=== PATIENT | female | born 1965 | race Caucasian/White ===

== ENCOUNTER 2018-12-24 15:40 | Observation (INO) ==
--- NOTE | 2018-12-24 16:09 | XRay Report ---
SINGLE VIEW CHEST CLINICAL HISTORY: Atypical chest pain. FINDINGS: An AP, portable, upright chest radiograph is obtained No prior studies are available for co mparison at the time of dictation. The examination is degraded by portable technique and patient rota tion. The cardiomediastinal silhouette is unremarkable. The lungs and pleural spaces are clear. No pn eumothorax is seen. The bony thorax is grossly intact. IMPRESSION: No active disease in the chest. Electronically signed by: Arun Marlow M.D. 12/24/2018 4:08 PM
[2018-12-24] MEDS ORDERED: SODIUM CHLORIDE 0.9% 1000ML 1,000 ML IV ONE (16:10)
[2018-12-24 16:12] LABS: Basophils # (auto) 0.02 K/uL (0-0.2); Basophils % (auto) 0.3 %; Eosinophils # (auto) 0.18 K/uL (0-0.5); Eosinophils % (auto) 2.5 %; Hematocrit (blood only) 40.4 % (37-47); Hemoglobin 13.4 g/dL (12.0-16.0); Immature Granulocytes # (auto) 0.02 K/uL (0.00-0.02); Immature Granulocytes % (auto) 0.3 %; Lymphocytes # (auto) 1.44 K/uL (1.2-3.4); Lymphocytes % (auto) 20.2 %; Mean Corpuscular Hgb Conc 33.2 g/dL (32-36); Mean Corpuscular Volume 95.5 fL (80-100); Mean Platelet Volume 9.9 fL (7.4-10.4); Monocytes # (auto) 0.62 K/uL (0.11-0.59); Monocytes % (auto) 8.7 %; Neutrophils # (auto) 4.85 K/uL (1.4-6.5); Platelet Count 269 K/uL (130-400); RDW Coefficient of Variation 12.9 % (11.5-14.5); RDW Standard Deviation 45.1 fL (36.4-46.3); Red Blood Count 4.23 M/uL (4.2-5.4); White Blood Count 7.13 K/uL (4.8-10.8)
[2018-12-24 16:30] LABS: Alanine Aminotransferase 20 U/L (12-78); Albumin Level 3.9 gm/dl (3.4-5.0); Aspartate Aminotransferase 15 U/L (15-37); BUN Creatinine Ratio 12.9 (10-20); Bilirubin Direct < 0.1 mg/dl (0-0.2); Blood Urea Nitrogen 9 mg/dl (7-18); Calcium 9.8 mg/dl (8.5-10.1); Carbon Dioxide 30 mmol/L (21-32); Chloride 105 mmol/L (98-107); Creatinine Clr Calc Pharmacy 117.9 ml/min; Est GFR (African American) 114.9; Est GFR (Non-African American) 99.2; Glucose 79 mg/dl (70-99); Magnesium 2.1 mg/dl (1.8-2.4); Potassium 3.5 mmol/L (3.5-5.1); Sodium 140 mmol/L (136-145)
--- NOTE | 2018-12-24 16:32 | Emergency Department Note ---
Entered by Kate Campos acting as a scribe for History of Present Illness General Chief complaint: Chest Pain Stated complaint: TIGHTNESS IN ARMS, NECK, CHEST,AND JAW;TINGLING Time Seen by Provider: 12/24/18 15:47 Source: patient History of Present Illness Onset (ago): hour(s) (15) Location: chest Pain Consistency: + other (waxing and waning) Maximum Pain Intensity: 2 Current Pain Intensity: 1 Quality: + other (tightness) Relieved By: + rest Exacerbated By: + movement Associated symptoms: + other (positive increased burping; positive "fuzzy h eaded"; negative congestion; negative diarrhea); no cough, no fever/chills, no nausea/vomiting and no shortness of breath The patient is a 53 year old female who presents to the Emergency Room with complaints of waxing and waning chest tightness that began this morning at 0100, about 15 hours prior to arrival. The patient states that this woke her up from sleep. The patient states that her symptoms are exacerbated with movement and relieved with rest. She states that during this time she has had increased burping and has felt "fuzzy headed". The patient rates her current pain at a 1/10. The patient denies recent fevers, chills, nausea, vomiting, cough, congestion, and diarrhea. The patient denies any recent shortness of breath. She states that she is a former smoker and occasionally drinks alcohol, but denies any drug use. The patient states that her father had a heart attack in his early 50s. The patient states that she has a history of anxiety and panic attacks. 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 The patient denies a history of reflux. She denies any recent long trips. Home Medications Home Medications Medication Instructions Recorded Confirmed Type levonorgestrel [Mirena] 20 mcg INTRAUTERINE 12/24/18 History Allergies Allergy/AdvReac Type Severity Reaction Status Date / Time No Known Allergies Allergy Unverified 12/24/18 16:52 Past Med/Surg History Medical History IUD (intrauterine device) in place (Chronic) 2017 Anxiety (Chronic) Panic attacks Surgical History History of (Chronic) Family History Father Myocardial infarction Mother Cancer Squamous cell carcinoma - Oral cancer Sister Cancer Lung cancer Social History Preferred Language: Nicaraguan Communication Ability: Effective 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 and A total of 10 systems reviewed and were otherwise negative Physical Exam Vital Signs Vital Signs - 24 hr 12/24/18 15:42 12/24/18 16:30 12/24/18 16:31 Temperature 36.6 C Temperature Source Oral Sepsis Recent Fever Within 48 Hours No Sepsis New/Unexplained Change in Mental Status No Sepsis Action Taken by Nursing No Action Required Pulse Rate 93 H 89 Pulse Rate from SpO2 Sensor Respiratory Rate 18 20 Respiratory Effort / Characteristics Non-Labored Respiratory Depth Normal Respiratory Pattern Regular Blood Pressure 147/84 H 145/84 H Blood Pressure Mean 105 104 Blood Pressure Position Sitting Pulse Oximetry 99 99 99 Oxygen Delivery Method Room Air Room Air Room Air 12/24/18 17:30 Temperature Temperature Source Sepsis Recent Fever Within 48 Hours Sepsis New/Unexplained Change in Mental Status Sepsis Action Taken by Nursing Pulse Rate 79 Pulse Rate from SpO2 Sensor 88 Respiratory Rate 18 Respiratory Effort / Characteristics Respiratory Depth Respiratory Pattern Blood Pressure 139/75 Blood Pressure Mean 96 Blood Pressure Position Pulse Oximetry 98 Oxygen Delivery Method Room Air GENERAL: Awake, alert, anxious-appearing, in no distress HENT: Normocephalic, atraumatic. Oropharynx with dry mucous membranes and otherwise unremarkable. EYES: Normal conjunctiva. Sclera non-icteric. NECK: Supple. No nuchal rigidity. FROM. No JVD. RESPIRATORY: CTAB. CARDIAC: Regular rate, normal rhythm. Extremities warm and well perfused. Pulses equal. ABDOMEN: Soft, non-distended. No tenderness to palpation. No rebound or guarding. No masses. RECTAL: Deferred. MUSCULOSKELETAL: Chest examination reveals no tenderness. The back is symmetrica l on inspection without obvious abnormality. There is no CVA tenderness to palpation. No joint edema. LOWER EXTREMITIES: Calves are equal size bilaterally and non-tender. No edema. No discoloration. NEURO: Normal sensorium. No sensory or motor deficits noted. SKIN: No rash or jaundice noted. Course 1604: Past medical records reviewed. The patient was evaluated in room B9. A complete history and physical exam was performed. 1703: Upon reevaluation, the patient states that she currently feels dizzy. 1709: I discussed the case with Pamela Ramos PA-C who accepts the patient for further evaluation. Consultations Consultation #1: I discussed the case with Pamela Ramos PA-C who accepts the patient for further evaluation. Time: 17:09 Administered Medications Discontinued Medications Aspirin (Aspirin) 324 mg PO NOW STA Stop: 12/24/18 17:07 Last Admin: 12/24/18 17:21 Dose: 324 mg Documented by: [id number] Sodium Chloride (Nss 1000ml) 1,000 mls @ 999 mls/hr IV .Q1H1M ONE Stop: 12/24/18 17:10 Last Infusion: 12/24/18 17:12 Dose: 0 mls/hr Documented by: [id number] Admin: 12/24/18 16:11 Dose: 999 mls/hr Documented by: [id number] Medical Decision Making Differential Diagnosis Differential diagnosis: Etiologies such as cardiac ischemia, aortic dissection, pulmonary embolism, pneumonia, pneumothorax, musculoskeletal, infections, pericarditis, myocarditis, esophageal rupture, gastrointestinal, as well as others were entertained. Medical Records Attestation: I reviewed the patient's medical records. Home Medications Current Medication List: was personally reviewed by me Laboratory Data Attestation: I reviewed the patient's lab results. Result diagrams: 12/24/18 15:57 12/24/18 15:57 Lab Results 12/24/18 12/24/18 Range/Units 15:57 15:57 WBC 7.13 (4.8-10.8) K/uL RBC 4.23 (4.2-5.4) M/uL Hgb 13.4 (12.0-16.0) g/dL Hct 40.4 (37-47) % MCV 95.5 (80-100) fL MCH 31.7 (25-34) pg MCHC 33.2 (32-36) g/dL RDW Std Deviation 45.1 (36.4-46.3) fL RDW Coeff of Audie 12.9 (11.5-14.5) % Plt Count 269 (130-400) K/uL MPV 9.9 (7.4-10.4) fL Immature Gran % (Auto) 0.3 % Neut % (Auto) 68.0 % Lymph % (Auto) 20.2 % [place] % (Auto) 8.7 % Eos % (Auto) 2.5 % Baso % (Auto) 0.3 % Immature Gran # (Auto) 0.02 (0.00-0.02) K/uL Neut # (Auto) 4.85 (1.4-6.5) K/uL Lymph # (Auto) 1.44 (1.2-3.4) K/uL [place] # (Auto) 0.62 H (0.11-0.59) K/uL Eos # (Auto) 0.18 (0-0.5) K/uL Baso # (Auto) 0.02 (0-0.2) K/uL Sodium 140 (136-145) mmol/L Potassium 3.5 (3.5-5.1) mmol/L Chloride 105 (98-107) mmol/L Carbon Dioxide 30 (21-32) mmol/L Anion Gap 6.0 (3-11) BUN 9 (7-18) mg/dl Creatinine 0.68 (0.6-1.2) mg/dl Est Cr Clr Drug Dosing 117.9 ml/min Est GFR ( Amer) 114.9 Est GFR (Non-Af Amer) 99.2 BUN/Creatinine Ratio 12.9 (10-20) Glucose 79 (70-99) mg/dl Calcium 9.8 (8.5-10.1) mg/dl Phosphorus 3.0 (2.5-4.9) mg/dl Magnesium 2.1 (1.8-2.4) mg/dl Total Bilirubin 0.2 (0.2-1) mg/dl Direct Bilirubin < 0.1 (0-0.2) mg/dl AST 15 (15-37) U/L ALT 20 (12-78) U/L Alkaline Phosphatase 72 (45-117) U/L Troponin I < 0.015 (0-0.045) ng/ml Total Protein 7.5 (6.4-8.2) gm/dl Albumin 3.9 (3.4-5.0) gm/dl Globulin 3.6 (2.5-4.0) gm/dl Albumin/Globulin Ratio 1.1 (0.9-2) Lipase 194 (73-393) U/L TSH 1.240 (0.300-4.500) uIu/ml Imaging Data Radiologist's Impression: Radiology results as stated below per my review and the radiologist's interpretation: SINGLE VIEW CHEST CLINICAL HISTORY: Atypical chest pain. FINDINGS: An AP, portable, upright chest radiograph is obtained No prior studies are available for comparison at the time of dictation. The examination is degraded by portable technique and patient rotation. The cardiomediastinal silhouette is unremarkable. The lungs and pleural spaces are clear. No pneumothorax is seen. The bony thorax is grossly intact. IMPRESSION: No active disease in the chest. Electronically signed by: Arun Marlow M.D. 12/24/2018 4:08 PM ECG Data Attestation: I personally reviewed and interpreted this ECG as follows: Indication: chest pain Rate (beats per minute): 81 Rhythm: normal sinus Findings: + other (normal axis; no overt acute ischemia; nonspecific ST abnormality) Blood Pressure Blood Pressure Findings: Elevated blood pressure Blood Pressure Disposition: further management by hospitalist YADI Merino The patient is a pleasant 53-year-old woman Priestly healthy with a past medical history of anxiety and panic attacks who presents to emergency department with constant chest pain since 1 AM last night which does wax and wane in severity and she feels is worse when she is however at this time she notes only marginal discomfort per hpi. Patient reports she sees a doctor regularly and denies any medical problems otherwise. She does report her father had his first heart attack in his 50s. On arrival patient is no acute distress, afebrile stable vi kg signs. She appears clinically dry. EKG with nonspecific ST abnormality but no overt acute ischemia. Chest x-ray negative. WBC, H/H, platelets wnl. Chemistry without acidosis. LFTs and electrolytes unremarkable. Initial troponin negative in the setting of constant though waxing waning symptoms since 1 AM last night, which is reassuring. However, patient's new WYLIE raises suspicion for possible cardiac etiology. Heart score is 4, moderate risk, reasonable to admit for further cardiac rule out. Case was discussed with Tatiana Rosado, [facility], who evaluate the patient for admission. Impression & Plan Atypical chest pain Discharge Plan Visit Data *Final* Discharge Date/Time: 12/24/18 18:35 Chief Complaint: Chest Pain Stated Complaint: TIGHTNESS IN ARMS, NECK, CHEST,AND JAW;TINGLING ED Provider: Roberto Denny Discharge Problem: Atypical chest pain Patient Disposition: Admitted As Inpatient Discharge Instructions Interventions: ED Discharge Assessment Last Done: 12/24/18 18:35 The scribe's documentation has been prepared under my direction and personally reviewed by me in its entirety. I confirm that the note above accurately reflects all work, treatment, procedures, and medical decision making performed by me.
[2018-12-24 16:39] LABS: Albumin Globulin Ratio 1.1 (0.9-2); Alkaline Phosphatase 72 U/L (45-117); Bilirubin,Total 0.2 mg/dl (0.2-1); Globulin 3.6 gm/dl (2.5-4.0); Total Protein 7.5 gm/dl (6.4-8.2); Troponin I < 0.015 ng/ml (0-0.045)
[2018-12-24] MEDS ORDERED: ASPIRIN CHEW 324 MG PO STA (17:06)
--- NOTE | 2018-12-24 17:46 | History & Physical Report ---
Date of Service December 24, 2018 Assessment & Plan (1) Chest pain: Pt presented with c/o anterior upper chest tightness intermittent with some SOB, dizziness for past 16 hours. No CP or other symptoms while in ER In ER vitals stable. Negative troponin. EKG sinus rhythm with nonspecific ST changes, no acute ST elevations CHEST PAIN R/O ACS. Risk factors: FH CAD DDX: anxiety, GERD, musculoskeletal -Monitor Vitals -Repeat EKG in am -Will trend troponin -lipid panel in am -ASA -Nitro prn CP and repeat EKG for CP -If normal troponins plan for exercise stress in am DVT Prophylaxis -Low risk, Ambulate Follows with Dr Nguyen for routine care Pt was seen and care coordinated with Dr Littlejohn. See addendum History of Present Illness Chief Complaint: chest tightness Primary Care Provider: Derian Nguyen MD Pt is 53 y/o F with PMH anxiety presented to ER with complaint of chest pain tightness. Patient reports approximately 1 AM this morning started with chest tightness described as upper anterior chest some associated dizziness, mild SOB, and feels like her heart rate might be "on the high side". Denies any associated nausea or vomiting. Symptoms have been intermittent. Denies history of hypertension hyperlipidemia or known CAD. Father with history of first LA in his early 50s and fatal LA in his early 70's. Patient reports history of panic attack in the past when she would feel SOB, CP. Denies any increased stressors recently. Denies any hx CP/chest tightness or SOB with exertion in past. During entire ED course patient without any chest tightness, dizziness, shortness of breath. Denies fever/chills, diaphoresis, N/V/D/C, [place], syncope, vision changes, neck pain, orthopnea, palpitations, cough, sore throat, choking, otalgia, rhinorrhea, abdominal pain, paresthesias, weakness, extremity weakness, extremity edema, rashes, urinary symptoms. Denies recent injury/trauma, recent travel. Allergies Allergy/AdvReac Type Severity Reaction Status Date / Time No Known Allergies Allergy Unverified 12/24/18 16:52 Home Medications Home Medications Medication Instructions Recorded Confirmed Type levonorgestrel [Mirena] 20 mcg INTRAUTERINE 12/24/18 History Past Med/Surg History Medical History IUD (intrauterine device) in place (Chronic) 2017 Anxiety (Chronic) Panic attacks Surgical History History of (Chronic) Family History Father Myocardial infarction Mother Cancer Squamous cell carcinoma - Oral cancer Sister Cancer Lung cancer Social History Preferred Language: Hungarian Feels Safe at Home: Yes Smoking Status: Former smoker Hx Alcohol Use: No Hx Substance Use: No Review of Systems Review of Systems: All systems reviewed & are unremarkable except as noted in HPI & below Physical Exam Physical Exam: General: no distress, WDWN Head: normocephalic, atraumatic Eyes: PERRL, EOM's intact, conjunctiva non-injected, anicteric ENT: normal inspection external ears, nose, mucous membranes moist Neck: supple, trachea midline Lungs: clear, no respiratory distress, no wheezing/rhonchi/rales CV: RRR, no murmur, no pretibial edema Chest: no rashes, no chest wall tenderness to palpation Abd: normal BS, soft, non-tender Ext: no cyanosis, no calf tenderness Neuro: A&O x 3, no focal deficits noted, normal affect Skin: warm, dry Results & Data Vital Signs (Past 12 Hours) Vital Signs Temp Pulse Resp BP Pulse Ox 12/24/18 17:30 79 18 139/75 98 12/24/18 16:31 89 20 145/84 H 99 12/24/18 16:30 99 12/24/18 15:42 36.6 C 93 H 18 147/84 H 99 Laboratory Results Short CBC 12/24/18 Range/Units 15:57 WBC 7.13 (4.8-10.8) K/uL Hgb 13.4 (12.0-16.0) g/dL Hct 40.4 (37-47) % Plt Count 269 (130-400) K/uL BMP 12/24/18 15:57 Sodium 140 Potassium 3.5 Chloride 105 Carbon Dioxide 30 BUN 9 Creatinine 0.68 Glucose 79 Calcium 9.8 Cardiac Enzymes 12/24/18 Range/Units 15:57 Troponin I < 0.015 (0-0.045) ng/ml Liver Function 12/24/18 Range/Units 15:57 Total Bilirubin 0.2 (0.2-1) mg/dl Direct Bilirubin < 0.1 (0-0.2) mg/dl AST 15 (15-37) U/L ALT 20 (12-78) U/L Alkaline Phosphatase 72 (45-117) U/L Albumin 3.9 (3.4-5.0) gm/dl Diagnostic Findings CXR: IMPRESSION: No active disease in the chest. ECG Rate (beats per minute): 81 Rhythm: normal sinus Findings: + nonspecific-ST abn Supervising Physician Co-Signing Physician Notes I saw this patient with the physician medical office assistant instructor, I participated in the history, physical, review of systems, and physical exam. I reviewed the medications with the patient and the physician medical office assistant instructor and helped reconcile the medications. I helped take a detailed family and social history as well. I formulated the assessment and plan personally with the physician medical office assistant instructor and went over it with the patient. ROS-No Headache, No Visual Changes, No Nausea, No Vomiting, No Fever, No Chills, No Neck Pain or Stiffness, + Chest Pressure, like a bear hug, +Radiation to arms, No Palpitations, No SOB, No WYLIE, No Cough, No Sputum, No Wheezing, No Abdominal Pain, No Diarrhea, No Hematemesis, No Hemoptysis, No Unexpected Weight Loss, No Flank pain, No Melena, No Hematochezia, No Frequency, No Urgency, No Burning, No Hematuria, No Rashes, No Diaphoresis. Appetite is Normal Physical Exam Gen-AAO x 3, NAD, Afebrile Head-NCAT, EOMI, PERRLA, Anicteric Sclera, No Posterior Pharyngeal Erythema Neck-Supple, No JVD, No Thyromegaly, No Masses, No LAD, No Bruits Lungs-Clear to Auscultation Bilaterally, No Rales, No Rhonchi, No Wheezing, No Crepitus Chest-No S4, +S1, +S2, No S3, No Murmurs, No Rubs, No Gallops, No Ectopy Abdomen-Soft, Bowel Sounds Present, Non Tender, Non Distended, No Hepatomegaly, No Splenomegaly, No Palpable Masses, No Rebound, No Rigidity, No Guarding Musculoskeletal-Full Range of Motion Bilaterally, No CVAT Extremities-No Cyanosis, No Clubbing, No Edema Nuero-Cranial Nerves II-XII grossly intact, Motor WNL, DTRs WNL, Strength WNL, Non Focal Psych-Normal Mood
[2018-12-24] MEDS ORDERED: NITROGLYCERIN SL 0.4 MG/TAB TAB SL PRN (18:45)
[2018-12-24] MEDS ORDERED: ACETAMINOPHEN 325 MG TAB PO PRN (18:45)
[2018-12-25 04:21] LABS: Hematocrit (blood only) 36.4 % (37-47); Mean Corpuscular Volume 94.5 fL (80-100); Mean Platelet Volume 9.7 fL (7.4-10.4); Platelet Count 223 K/uL (130-400); RDW Coefficient of Variation 12.9 % (11.5-14.5); RDW Standard Deviation 44.7 fL (36.4-46.3); Red Blood Count 3.85 M/uL (4.2-5.4); White Blood Count 6.56 K/uL (4.8-10.8)
[2018-12-25 04:37] LABS: BUN Creatinine Ratio 18.6 (10-20); Blood Urea Nitrogen 10 mg/dl (7-18); Carbon Dioxide 26 mmol/L (21-32); Chloride 110 mmol/L (98-107); Creatinine Clr Calc Pharmacy 143.3 ml/min; Est GFR (African American) 122.5; Est GFR (Non-African American) 105.7; Glucose 92 mg/dl (70-99); Potassium 3.7 mmol/L (3.5-5.1); Sodium 142 mmol/L (136-145)
[2018-12-25 04:42] LABS: Chol HDL Ratio 3; Cholesterol 195 mg/dl (0-200); HDL Cholesterol 58 mg/dl; LDL Cholesterol Calculated 122 mg/dl; Triglycerides 77 mg/dl (0-150); Troponin I < 0.015 ng/ml (0-0.045); VLDL Cholesterol 15 mg/dl
[2018-12-25] MEDS ORDERED: ASPIRIN 81 MG ECTAB PO SCH (09:00)
[2018-12-25] MEDS ORDERED: PERFLUTREN LIPID MICROSPHERE (DEFINITY) IV ONE (10:19)
--- NOTE | 2018-12-25 13:43 | Hospitalist Progress Note ---
Date of Service December 25, 2018 Assessment & Plan (1) Chest pain: Pt presented with c/o anterior upper chest tightness intermittent with some SOB, dizziness for past 16 hours. No CP or other symptoms while in ER In ER vitals stable. Negative troponin. EKG sinus rhythm with nonspecific ST changes, no acute ST elevations CHEST PAIN R/O ACS. Risk factors: FH CAD DDX: anxiety, GERD, musculoskeletal Serial cardiac enzymes and EKG remained unremarkable No more chest pain since admission Status post negative stress echo Will discharge home DVT Prophylaxis -Low risk, Ambulate Follows with Dr Nguyen for routine care Subjective 12/25 The patient was seen and examined in medical telemetry unit He was admitted with chest pain Denies any more chest pain since admission Had a negative stress echo Review of Systems Review of Systems: All systems reviewed and are unremarkable except as noted below Cardiovascular: no chest pain, no chest pain at rest and no dyspnea Physical Exam Physical Exam: No apparent distress at rest Constitutional: well developed and well nourished; no acute distress and not ill appearing Eyes: PERRL, conjunctivae normal, anicteric sclerae ENMT: external ear and nose normal, oropharynx normal Neck: trachea midline, no thyromegaly Respiratory: normal respiratory effort; no respiratory distress Auscultation: lungs clear to auscultation bilaterally Cardiovascular: Rate/Rhythm: regular rate and regular rhythm Heart Sounds: no murmur Gastrointestinal (Abdomen): Inspection/Auscultation: abdomen normal to inspection Percussion/Palpation: abdomen soft Lymphatic: no cervical or axillary lymphadenopathy Results & Data Vital Signs (Past 12 Hours) Vital Signs Temp Pulse Pulse Resp BP Pulse Ox 12/25/18 08:31 69 12/25/18 07:47 36.6 C 58 L 18 117/75 97 Laboratory Results Short CBC 12/24/18 12/25/18 Range/Units 15:57 04:06 WBC 7.13 6.56 (4.8-10.8) K/uL Hgb 13.4 12.0 (12.0-16.0) g/dL Hct 40.4 36.4 L (37-47) % Plt Count 269 223 (130-400) K/uL BMP 12/24/18 12/25/18 15:57 04:06 Sodium 140 142 Potassium 3.5 3.7 Chloride 105 110 H Carbon Dioxide 30 26 BUN 9 10 Creatinine 0.68 0.56 L Glucose 79 92 Calcium 9.8 9.0 Cardiac Enzymes 12/24/18 12/24/18 12/25/18 Range/Units 15:57 21:46 04:06 Troponin I < 0.015 < 0.015 < 0.015 (0-0.045) ng/ml Liver Function 12/24/18 Range/Units 15:57 Total Bilirubin 0.2 (0.2-1) mg/dl Direct Bilirubin < 0.1 (0-0.2) mg/dl AST 15 (15-37) U/L ALT 20 (12-78) U/L Alkaline Phosphatase 72 (45-117) U/L Albumin 3.9 (3.4-5.0) gm/dl Medications Administered Current Inpatient Medications Acetaminophen (Tylenol) 650 mg PO Q4H PRN PRN Reason: Pain or Fever Stop: 01/23/19 18:44 Aspirin (Ecotrin Ectab) [facility] [place]: 01/24/19 08:59 Last Admin: 12/25/18 08:24 Dose: 81 mg Documented by: Nitroglycerin (Nitrostat) 0.4 mg [facility] PRN PRN Reason: Chest Pain Stop: 01/23/19 18:44
--- NOTE | 2018-12-26 10:34 | Discharge Summary ---
Date of Service December 26, 2018 Admission HPI Per Admitting Provider Pt is 53 y/o F with PMH anxiety presented to ER with complaint of chest pain tightness. Patient reports approximately 1 AM this morning started with chest tightness described as upper anterior chest some associated dizziness, mild SOB, and feels like her heart rate might be "on the high side". Denies any associated nausea or vomiting. Symptoms have been intermittent. Denies history of hypertension hyperlipidemia or known CAD. Father with history of first MO in his early 50s and fatal MO in his early 70's. Patient reports history of panic attack in the past when she would feel SOB, CP. Denies any increased stressors recently. Denies any hx CP/chest tightness or SOB with exertion in past. During entire ED course patient without any chest tightness, dizziness, shortness of breath. Denies fever/chills, diaphoresis, N/V/D/C, [place], syncope, vision changes, neck pain, orthopnea, palpitations, cough, sore throat, choking, otalgia, rhinorrhea, abdominal pain, paresthesias, weakness, extremity weakness, extremi ty edema, rashes, urinary symptoms. Denies recent injury/trauma, recent travel. Admission Exam Per Admitting Provider Physical Exam: General: no distress, WDWN Head: normocephalic, atraumatic Eyes: PERRL, EOM's intact, conjunctiva non-injected, anicteric ENT: normal inspection external ears, nose, mucous membranes moist Neck: supple, trachea midline Lungs: clear, no respiratory distress, no wheezing/rhonchi/rales CV: RRR, no murmur, no pretibial edema Chest: no rashes, no chest wall tenderness to palpation Abd: normal BS, soft, non-tender Ext: no cyanosis, no calf tenderness Neuro: A&O x 3, no focal deficits noted, normal affect Skin: warm, dry Principal Diagnosis Chest pain no ACS-. Negative stress echo Discharge Exam Constitutional well developed and well nourished; no acute distress and not ill appearing Eyes PERRL, conjunctivae normal, anicteric sclerae ENMT external ear and nose normal, oropharynx normal Neck trachea midline, no thyromegaly Respiratory normal respiratory effort; no respiratory distress Auscultation: lungs clear to auscultation bilaterally Cardiovascular Rate/Rhythm: regular rate and regular rhythm Heart Sounds: no murmur Gastrointestinal (Abdomen) Inspection/Auscultation: abdomen normal to inspection Percussion/Palpation: abdomen soft Lymphatic no cervical or axillary lymphadenopathy Discharge Data Allergies Allergy/AdvReac Type Severity Reaction Status Date / Time No Known Allergies Allergy Unverified 12/24/18 16:52 Consultations 12/24/18 17:06 ED Decision to Admit Stat Hospital Course (1) Chest pain: Pt presented with c/o anterior upper chest tightness intermittent with some SOB, dizziness for past 16 hours. No CP or other symptoms while in ER In ER vitals stable. Negative troponin. EKG sinus rhythm with nonspecific ST changes, no acute ST elevations CHEST PAIN R/O ACS. Risk factors: FH CAD DDX: anxiety, GERD, musculoskeletal Serial cardiac enzymes and EKG remained unremarkable No more chest pain since admission Status post negative stress echo Will discharge home DVT Prophylaxis -Low risk, Ambulate Follows with Dr Nguyen for routine care Total Time Total Time Spent Total Time Spent (In Minutes): 35 minutes Total Time Includes: Examination of the Patient, Discharge Planning, Medication Reconciliation and Communication With Other Providers Discharge Plan Discharge Items Patient Disposition: Home - Self-Care Reason For Visit: CP Discharge Diagnosis: Chest pain no ACS-. Negative stress echo Condition: Good Discharge Goals: Decrease discomfort, Increase independence and Improve nutritional status Activity: Resume your previous activity Non-emergency contact: Primary Care Provider Call non-emergency contact if: you have any medication questions and your symptoms worsen Follow-up/Referrals: Derian Nguyen MD [Primary Care Provider] - 12/29/18 1:45 pm Diet: Heart Healthy Addtl Provider Instructions: No change in her current medication Prescriptions: New aspirin [Ecotrin Low Strength] 81 mg Tablet,Delayed Release (Dr/Ec) 81 mg PO QAM 30 Days Qty: 30 RF: 0 Continued Mirena 20 mcg/24 hours (5 yrs) 52 mg Intrauterine Device 20 mcg INTRAUTERINE RF: 0 Stand-Alone Forms: Call Back Authorization, [employer] Discharge Orders: Discharge Order (Routine); Ordered 12/25/18 Ordered By: Ray Baca Admission Data Admit Date/Time: 12/24/18 17:38 Attending Provider: Ray Baca Admit Provider: Marc Littlejohn Primary Care Provider: Derian Nguyen Other Providers: Marc Littlejohn Service: Telemetry Medical Other Interventions: Discharge Summary Assessment (RN) Last Done: 12/25/18 14:41 DC Date/Time DO NOT enter until pt leaves facility: 12/25/18 14:50
== END 2018-12-25 14:50 | disposition home or self-care (01) ==
LOC: 2N 15:40 → ED 15:40 → 2N 18:35

== ENCOUNTER 2021-07-10 17:03 | Observation (INO) ==
[2021-07-10 17:56] LABS: Basophils # (auto) 0.02 K/uL (0-0.2); Basophils % (auto) 0.2 %; Eosinophils # (auto) 0.04 K/uL (0-0.5); Eosinophils % (auto) 0.3 %; Hematocrit (blood only) 40.1 % (37-47); Hemoglobin 13.5 g/dL (12.0-16.0); Immature Granulocytes # (auto) 0.06 K/uL (0.00-0.02); Immature Granulocytes % (auto) 0.5 %; Lymphocytes # (auto) 1.24 K/uL (1.2-3.4); Lymphocytes % (auto) 9.8 %; Mean Corpuscular Hemoglobin 31.7 pg (25-34); Mean Corpuscular Hgb Conc 33.7 g/dL (32-36); Mean Corpuscular Volume 94.1 fL (80-100); Mean Platelet Volume 9.7 fL (7.4-10.4); Monocytes # (auto) 0.99 K/uL (0.11-0.59); Monocytes % (auto) 7.8 %; Neutrophils # (auto) 10.31 K/uL (1.4-6.5); Neutrophils % (auto) 81.4 %; Platelet Count 282 K/uL (130-400); RDW Coefficient of Variation 12.8 % (11.5-14.5); Red Blood Count 4.26 M/uL (4.2-5.4); White Blood Count 12.66 K/uL (4.8-10.8)
--- NOTE | 2021-07-10 18:04 | Emergency Department Note ---
History of Present Illness General Chief complaint: Abdominal Pain Stated complaint: POSSIBLE APPENDICITIS, CT SCAN DONE Time Seen by Provider: 07/10/21 17:16 Source: patient Mode of arrival: ambulatory Limitations: no limitations History of Present Illness Maximum Pain Intensity: 4 This patient is a 55-year-old female who presents to the emergency department for evaluation of abdominal pain/appendicitis. Patient reports that she had some diarrhea late last week which continued throughout the weekend. This res olved, but she developed some right lower quadrant abdominal pain starting yesterday. She has been nauseous. She denies vomiting or fevers. She rates her discomfort a 4/10 but states it is worse with pressing on her abdomen, moving or walking. She has had two prior C-sections. She was seen by her PCP who ordered a CT scan which showed appendicitis. She was then sent here. Home Medications Medication Instructions Recorded Confirmed Type levonorgestrel 20 mcg/24 hours (7 20 mcg INTRAUTERINE 12/24/18 History yrs) 52 mg intrauterine device (Mirena) Allergies Allergy/AdvReac Type Severity Reaction Status Date / Time No Known Allergies Allergy Unverified 12/24/18 16:52 Past Med/Surg History Medical History (Updated 07/10/21 @ 23:49 by Monserrat Barajas PA-C) Anxiety IUD (intrauterine device) in place 2017 Panic attacks Surgical History History of Family History Father Myocardial infarction Mother Cancer Squamous cell carcinoma - Oral cancer Sister Cancer Lung cancer Social History Smoking Status: Never smoker Hx Alcohol Use: Yes Alcohol type: beer, wine and hard liquor Hx Substance Use: No Preferred Language: Turkish Communication Ability: Effective Gallery Host Required: No Beliefs That Will Affect Care: None Current Living Situation: Spouse Feels Safe at Home: Yes Assistive Devices: None Review of Systems A total of 10 systems reviewed and were otherwise negative Physical Exam Vital Signs Vital Signs - 24 hr 07/10/21 17:08 07/10/21 20:40 07/10/21 22:06 Temperature 36.7 C 36.8 C Temperature Source Temporal Artery Scan Temporal Artery Scan Pulse Rate 114 H Pulse Rate [Apical] 98 H Pulse Rhythm Regular Pulse Rhythm [Apical] Regular Pulse Strength Normal Respiratory Rate 20 16 Respiratory Effort / Characteristics Non-Labored Spontaneous Non-Labored Spontaneous Respiratory Depth Normal Respiratory Pattern Regular Regular Blood Pressure 132/62 Blood Pressure [Left Arm] 130/92 Blood Pressure Mean 85 Blood Pressure Mean [Left Arm] 104 Blood Pressure Position Sitting Blood Pressure Position [Left Arm] Semi-fowlers Pulse Oximetry 97 98 Oxygen Delivery Method Room Air Room Air Oxymask Oxygen Flow Rate 5 Sepsis Recent Fever Within 48 Hours No Sepsis New/Unexplained Change in Mental Status No Sepsis Action Taken by Nursing No Action Required VITALS: Vitals are noted on the nurse's note and reviewed by myself. Vital signs stable. GENERAL: This is a 55-year-old female, in no acute distress, well-developed well-nourished. SKIN: The skin was without rashes. EYES: Pupils equal round and reactive to light and accommodation. MOUTH: Mucous membranes moist. NECK: Supple without nuchal rigidity. HEART: Regular rate and rhythm without murmurs gallops or rubs. LUNGS: Clear to auscultation bilaterally without wheezes, rales or rhonchi. ABDOMEN: Positive bowel sounds x 4. Soft, moderate tenderness to palpation in the right lower quadrant. No guarding or rebound tenderness. NEURO: Patient was alert and oriented to person place and time. Course Consultations Consultation #1: Dr. Jerome - general surgery Administered Medications Sodium Chloride (Nss 1000ml) 1,000 mls @ 50 mls/hr IV .Q20H [facility] Stop: 08/09/21 23:07 Last Admin: 07/10/21 23:18 Dose: 50 mls/hr Documented by: [id number] Discontinued Medications Bupivacaine HCl (Bupivacaine 0.5 % 5 Mg/1 Ml Mpf 30ml Vial) Confirm Administered Dose 30 ml .ROUTE .STK-MED ONE Stop: 07/10/21 20:46 Last Admin: 07/10/21 21:51 Dose: 30 ml Documented by: [id number] Epinephrine HCl (Epinephrine Inj 1 Mg/Ml Amp) Confirm Administered Dose 1 mg .ROUTE .STK-MED ONE Stop: 07/10/21 20:46 Last Admin: 07/10/21 21:50 Dose: 0.15 mg Documented by: [id number] Cefoxitin Sodium (Mefoxin) 2,000 mg in 60 mls @ 100 mls/hr IV NOW STA Stop: 07/10/21 21:05 Last Infusion: 07/10/21 23:16 Dose: 0 mls/hr Documented by: [id number] Admin: 07/10/21 21:07 Dose: 100 mls/hr Documented by: [id number] Acetaminophen ([facility]) 1,000 mg in 100 mls @ 400 mls/hr IV NOW STA Stop: 07/10/21 20:44 Last Admin: 07/10/21 23:16 Dose: Not Given Documented by: [id number] Medical Decision Making Differential Diagnosis Appendicitis, ovarian cyst, ovarian torsion, ectopic , TOA, PID, infections, diverticulitis, UTI, obstruction, mesenteric ischemia, aortic pathology, inflammatory bowel disease, renal colic, PUD, pancreatitis, biliary pathology, hernia, volvulus, constipation, as well as other pathologies. Home Medications Current Medication List: was personally reviewed by me Laboratory Data Attestation: I reviewed the patient's lab results. Result diagrams: 07/10/21 17:35 07/10/21 17:35 Lab Results 07/10/21 07/10/21 07/10/21 Range/Units 17:35 17:35 17:40 WBC 12.66 H (4.8-10.8) K/uL RBC 4.26 (4.2-5.4) M/uL Hgb 13.5 (12.0-16.0) g/dL Hct 40.1 (37-47) % MCV 94.1 (80-100) fL MCH 31.7 (25-34) pg MCHC 33.7 (32-36) g/dL RDW Std Deviation 44.0 (36.4-46.3) fL RDW Coeff of Audie 12.8 (11.5-14.5) % Plt Count 282 (130-400) K/uL MPV 9.7 (7.4-10.4) fL Immature Gran % (Auto) 0.5 % Neut % (Auto) 81.4 % Lymph % (Auto) 9.8 % [place] % (Auto) 7.8 % Eos % (Auto) 0.3 % Baso % (Auto) 0.2 % Neut # (Auto) 10.31 H (1.4-6.5) K/uL Lymph # (Auto) 1.24 (1.2-3.4) K/uL [place] # (Auto) 0.99 H (0.11-0.59) K/uL Eos # (Auto) 0.04 (0-0.5) K/uL Baso # (Auto) 0.02 (0-0.2) K/uL Immature Gran # (Auto) 0.06 H (0.00-0.02) K/uL Sodium 135 L (136-145) mmol/L Potassium 3.3 L (3.5-5.1) mmol/L Chloride 100 (98-107) mmol/L Carbon Dioxide 27 (21-32) mmol/L Anion Gap 8 (3-11) BUN 7 (6-23) mg/dl Creatinine 0.56 L (0.6-1.2) mg/dl Est Cr Clr Drug Dosing 121.3 ml/min Est GFR ( Amer) 120.8 ml/min Est GFR (Non-Af Amer) 104.2 ml/min BUN/Creatinine Ratio 12.5 (10-20) Glucose 73 (70-99(Fasting)) mg/dl Calcium 10.2 H (8.5-10.1) mg/dl Total Bilirubin 0.6 (0.2-1.0) mg/dl AST 19 (13-39) U/L ALT 73 H (7-52) U/L Alkaline Phosphatase 99 (34-104) U/L Total Protein 7.2 (6.0-8.3) gm/dl Albumin 4.2 (3.4-5.0) gm/dl Globulin 3.0 (2.5-4.0) gm/dl Albumin/Globulin Ratio 1.4 (0.9-2) Lipase 14 (11-82) U/L SARS-CoV-2, RNA, NAAT NEGATIVE (NEGATIVE) Imaging Data Attestation: I personally reviewed and interpreted this imaging study as follows: My Impression: (From earlier today) CT abd pelvis oral and IV con CLINICAL HISTORY: ABD PAIN, R LOWER QUADRANT PAIN TECHNIQUE: Helical axial images of the abdomen and pelvis were obtained and displayed. Automated dose lowering techniques and/or adjustment according to patient size were utilized for this exam. This exam was performed with intravenous contrast. COMPARISON: None available at the time of this dictation. FINDINGS: Lower chest: No acute abnormality Liver: Cysts are seen in the liver. Gallbladder and biliary tree: Gallbladder contains numerous stones, some of which are calcified. The common bile duct measures 8 mm in diameter. Pancreas: Unremarkable, no focal lesions. Spleen: Unremarkable. Adrenals: Unremarkable. Kidneys and ureters: A large right renal cyst is seen. Bladder: Limited evaluation due to underdistention. Reproductive organs: A calcified fibroid is incidentally noted. Intrauterine device is seen. Bowel: The appendix is dilated and wall thickening and fat stranding is seen, diameter measures 13 mm. There is no well organized fluid collection or perforation seen. Lymph nodes Retroperitoneal: Subcentimeter lymph nodes are noted. Mesenteric: Subcentimeter lymph nodes are noted. Pelvic: Unremarkable. Peritoneum: Normal. Vessels: Unremarkable. Abdominal wall: Unremarkable. Bones: Unremarkable. IMPRESSION: 1. Findings are compatible with acute appendicitis without evidence of pe rforation or abscess formation. 2. Multiple gallstones are seen and there is prominence of the main biliary duct. MDM Narrative This patient is a 55-year-old female who presents to the emergency department for evaluation of abdominal pain and an outpatient CT scan showing appendicitis. Patient's history is consistent with this. Labs revealed a leukocytosis of 12,000. General surgery was consulted and will take the patient to the OR for further management. Impression & Plan Acute appendicitis Discharge Plan Visit Data Chief Complaint: Abdominal Pain Stated Complaint: POSSIBLE APPENDICITIS, CT SCAN DONE ED Provider: Korey Burroughs ED Midlevel Provider: Monserrat Barajas Discharge Problem: Acute appendicitis Patient Disposition: Admitted As Inpatient Discharge Instructions Interventions: ED Discharge Assessment Last Done: 07/10/21 20:40 Discharge Problem: Acute appendicitis Qualifiers: Acute appendicitis type: with localized peritonitis Appendicitis gangrene presence: unspecified whether gangrene present Appendicitis perforation presence: without perforation Appendicitis abscess presence: without abscess Qualified Code(s): K35.30 - Acute appendicitis with localized peritonitis, with out perforation or gangrene
[2021-07-10 18:15] LABS: Albumin Globulin Ratio 1.4 (0.9-2); Albumin Level 4.2 gm/dl (3.4-5.0); BUN Creatinine Ratio 12.5 (10-20); Bilirubin,Total 0.6 mg/dl (0.2-1.0); Calcium 10.2 mg/dl (8.5-10.1); Creatinine Clr Calc Pharmacy 121.3 ml/min; Est GFR (African American) 120.8 ml/min; Est GFR (Non-African American) 104.2 ml/min; Potassium 3.3 mmol/L (3.5-5.1); Total Protein 7.2 gm/dl (6.0-8.3)
[2021-07-10 18:56] LABS: Appearance Urine Clear (Clear); Bacteria Urine Automated Negative (Negative); Bilirubin Urine Negative (Negative); Blood Urine 1+ (Negative); Color Urine Yellow; Epithelial Cell Urine Auto >30 /lpf (0-5); Glucose Urine UA Negative (Negative); Ketones Urine 1+ (Negative); Leukocyte Esterase Urine Negative (Negative); Nitrite Urine Negative (Negative); Protein Urine Negative (Negative); RBC Urine Automated 0-4 /hpf (0-4); Specific Gravity Urine > 1.045 (1.000-1.030); Urobilinogen Urine Negative (Negative)
[2021-07-10] MEDS ORDERED: ONDANSETRON INJ 2 MG/ML 2 ML VIAL IV PRN ×2 (20:30→23:08)
[2021-07-10] MEDS ORDERED: HYDROmorphone INJ 1 MG/ML SYRINGE IV PRN (20:30)
[2021-07-10] MEDS ORDERED: PROMETHAZINE HCL 6.25 MG in SODIUM CHLORIDE 0.9% 50 ML IV PRN (20:30)
[2021-07-10] MEDS ORDERED: ePHEDrine sulfate 50 MG/ML AMP IV PRN (20:30)
[2021-07-10] MEDS ORDERED: cefOXitin 2,000 MG/60 ML BAG IV STA (20:30)
[2021-07-10] MEDS ORDERED: fentaNYL citrate 100 MCG/2 ML VIAL IV PRN (20:30)
[2021-07-10] MEDS ORDERED: ACETAMINOPHEN 1,000 MG/100 ML VIAL IV STA (20:30)
[2021-07-10] MEDS ORDERED: ATROPINE SULFATE 0.1 MG/ML 10ML SYR IV PRN (20:30)
--- NOTE | 2021-07-10 20:32 | Anesthesiology Consultation ---
Date of Service July 10, 2021 Assessment & Plan (1) Encounter for pre-operative examination: Chart Review Chart Review: Acceptable Risk for Surgery and Patient NOT seen in Pre Admission Testing Consults Requested none History Surgery Operation Date: 07/10/21 20:30 Proposed Procedures p Laparoscopic Appendectomy - Fabio Jerome MD Height/Weight Height: 5 ft 10 in Weight: 76.5 kg Allergies Allergy/AdvReac Type Severity Reaction Status Date / Time No Known Allergies Allergy Unverified 12/24/18 16:52 Medications Home Medications Medication Instructions Recorded Confirmed Last Taken levonorgestrel 20 mcg/24 hours (7 20 mcg INTRAUTERINE 12/24/18 Unknown yrs) 52 mg intrauterine device (Mirena) Past Medical History Medical History Anxiety IUD (intrauterine device) in place 2017 Panic attacks Exercise / Class Metabolic Activity II 4-5 Yardwork/Stairs/Walk up hill Past Family History Family History Father Myocardial infarction Mother Cancer Squamous cell carcinoma - Oral cancer Sister Cancer Lung cancer Past Surgical History Surgical History History of Past Anesthesia History No Hx of Anesthesia Complications and No Family Hx of Anesthesia Complications History of PONV No Hx of PONV and No Hx of Motion Sickness Social History Smoking Status: Never smoker Hx Alcohol Use: Yes Alcohol type: beer, wine and hard liquor alcohol intake frequency: holidays/special occasions only Hx Substance Use: No Physical Exam Vital Signs Last Vital Signs Temp 36.7 C 07/10/21 17:08 Pulse 114 H 07/10/21 17:08 Resp 20 07/10/21 17:08 BP 132/62 07/10/21 17:08 Pulse Ox 97 07/10/21 17:08 Testing Laboratory Results 07/10/21 17:35 07/10/21 17:35 Urine Color Yellow 07/10/21 Unknown Urine Appearance Clear (Clear) 07/10/21 Unknown Urine pH 5.0 (4.5-7.5) 07/10/21 Unknown Ur Specific [place] > 1.045 (1.000-1.030) H 07/10/21 Unknown Urine Protein Negative (Negative) 07/10/21 Unknown Urine Glucose (UA) Negative (Negative) 07/10/21 Unknown Urine Ketones 1+ (Negative) H 07/10/21 Unknown Urine Nitrite Negative (Negative) 07/10/21 Unknown Ur Leukocyte Esterase Negative (Negative) 07/10/21 Unknown Urine WBC (Auto) 1-5 /hpf (0-5) 07/10/21 Unknown Urine RBC (Auto) 0-4 /hpf (0-4) 07/10/21 Unknown U Hyaline Cast (Auto) 1-5 /lpf (0-5) 07/10/21 Unknown U Epithel Cells (Auto) >30 /lpf (0-5) H 07/10/21 Unknown Urine Bacteria (Auto) Negative (Negative) 07/10/21 Unknown
--- NOTE | 2021-07-10 20:44 | History & Physical Report ---
Date of Service July 10, 2021 Assessment & Plan (1) Acute appendicitis with localized peritonitis: Plan: 55-year-old woman presents with acute appendicitis. White blood cell count of 12. I discussed with her the risks and benefits of laparoscopic, possible open, appendectomy. All her questions were answered and she is agreeable to proceed. We will take her to the operating room at the earliest convenience. History of Present Illness Chief Complaint: Right lower quadrant pain Primary Care Provider: Derian Nguyen MD 55-year-old woman presents with 1 week history of right lower quadrant pain. She states that both her and her were sick last week with what they thought was a GI bug. She had low-grade temperatures and nausea. Abruptly her pain worsened today. Her has improved. She denies chest pain or shortness of breath. She has been having normal bowel movements. CT scan demo nstrates acute appendicitis. Allergies Allergy/AdvReac Type Severity Reaction Status Date / Time No Known Allergies Allergy Unverified 12/24/18 16:52 Home Medications Medication Instructions Recorded Confirmed Type levonorgestrel 20 mcg/24 hours (7 20 mcg INTRAUTERINE 12/24/18 History yrs) 52 mg intrauterine device (Mirena) Past Med/Surg History Medical History (Updated 07/10/21 @ 20:45 by Fabio Jerome MD) Anxiety IUD (intrauterine device) in place 2017 Panic attacks Surgical History History of Family History Father Myocardial infarction Mother Cancer Squamous cell carcinoma - Oral cancer Sister Cancer Lung cancer Social History Smoking Status: Never smoker Hx Alcohol Use: Yes Alcohol type: beer, wine and hard liquor Hx Substance Use: No Preferred Language: Amharic Communication Ability: Effective Instructor Decorating Required: No Beliefs That Will Affect Care: None Current Living Situation: Spouse Feels Safe at Home: Yes Assistive Devices: None Review of Systems Review of Systems: All systems reviewed & are unremarkable except as noted in HPI & below Physical Exam Constitutional: WD/WN, vitals as above Eyes: PERRL, conjunctivae normal, anicteric sclerae Neck: trachea midline, no thyromegaly Respiratory: normal respiratory effort, lungs clear to auscultation Cardiovascular: RRR, no murmur, no edema Gastrointestinal (Abdomen): Inspection/Auscultation: abdomen normal to inspection; abdomen not distended Percussion/Palpation: + abdomen tender (Right lower/left lower quadrant) and abdomen soft; no guarding and abdomen not rigid Musculoskeletal: Extremities: no cyanosis and no clubbing Skin: no rashes, warm and dry Psychiatric: A+Ox3, euthymic affect Results & Data Results & Data ([facility]) Vital Signs (Past 12 Hours) Vital Signs Temp Pulse Resp BP Pulse Ox 07/10/21 17:08 36.7 C 114 H 20 132/62 97 Laboratory Results 07/10/21 07/10/21 07/10/21 Range/Units Unknown 17:40 17:35 WBC (4.8-10.8) K/uL RBC (4.2-5.4) M/uL Hgb (12.0-16.0) g/dL Hct (37-47) % MCV (80-100) fL MCH (25-34) pg MCHC (32-36) g/dL RDW Std Deviation (36.4-46.3) fL RDW Coeff of Audie (11.5-14.5) % Plt Count (130-400) K/uL MPV (7.4-10.4) fL Immature Gran % (Auto) % Neut % (Auto) % Lymph % (Auto) % [place] % (Auto) % Eos % (Auto) % Baso % (Auto) % Neut # (Auto) (1.4-6.5) K/uL Lymph # (Auto) (1.2-3.4) K/uL [place] # (Auto) (0.11-0.59) K/uL Eos # (Auto) (0-0.5) K/uL Baso # (Auto) (0-0.2) K/uL Immature Gran # (Auto) (0.00-0.02) K/uL Sodium 135 L (136-145) mmol/L Potassium 3.3 L (3.5-5.1) mmol/L Chloride 100 (98-107) mmol/L Carbon Dioxide 27 (21-32) mmol/L Anion Gap 8 (3-11) BUN 7 (6-23) mg/dl Creatinine 0.56 L (0.6-1.2) mg/dl Est Cr Clr Drug Dosing 121.3 ml/min Est GFR ( Amer) 120.8 ml/min Est GFR (Non-Af Amer) 104.2 ml/min BUN/Creatinine Ratio 12.5 (10-20) Glucose 73 (70-99(Fasting)) mg/dl Calcium 10.2 H (8.5-10.1) mg/dl Total Bilirubin 0.6 (0.2-1.0) mg/dl AST 19 (13-39) U/L ALT 73 H (7-52) U/L Alkaline Phosphatase 99 (34-104) U/L Total Protein 7.2 (6.0-8.3) gm/dl Albumin 4.2 (3.4-5.0) gm/dl Globulin 3.0 (2.5-4.0) gm/dl Albumin/Globulin Ratio 1.4 (0.9-2) Lipase 14 (11-82) U/L Urine Color Yellow Urine Appearance Clear (Clear) Urine pH 5.0 (4.5-7.5) Ur Specific [place] > 1.045 H (1.000-1.030) Urine Protein Negative (Negative) Urine Glucose (UA) Negative (Negative) Urine Ketones 1+ H (Negative) Urine Blood 1+ H (Negative) Urine Nitrite Negative (Negative) Urine Bilirubin Negative (Negative) Urine Urobilinogen Negative (Negative) Ur Leukocyte Esterase Negative (Negative) Urine WBC (Auto) 1-5 (0-5) /hpf Urine RBC (Auto) 0-4 (0-4) /hpf U Hyaline Cast (Auto) 1-5 (0-5) /lpf U Epithel Cells (Auto) >30 H (0-5) /lpf Urine Bacteria (Auto) Negative (Negative) SARS-CoV-2, RNA, NAAT NEGATIVE (NEGATIVE) 07/10/21 Range/Units 17:35 WBC 12.66 H (4.8-10.8) K/uL RBC 4.26 (4.2-5.4) M/uL Hgb 13.5 (12.0-16.0) g/dL Hct 40.1 (37-47) % MCV 94.1 (80-100) fL MCH 31.7 (25-34) pg MCHC 33.7 (32-36) g/dL RDW Std Deviation 44.0 (36.4-46.3) fL RDW Coeff of Audie 12.8 (11.5-14.5) % Plt Count 282 (130-400) K/uL MPV 9.7 (7.4-10.4) fL Immature Gran % (Auto) 0.5 % Neut % (Auto) 81.4 % Lymph % (Auto) 9.8 % [place] % (Auto) 7.8 % Eos % (Auto) 0.3 % Baso % (Auto) 0.2 % Neut # (Auto) 10.31 H (1.4-6.5) K/uL Lymph # (Auto) 1.24 (1.2-3.4) K/uL [place] # (Auto) 0.99 H (0.11-0.59) K/uL Eos # (Auto) 0.04 (0-0.5) K/uL Baso # (Auto) 0.02 (0-0.2) K/uL Immature Gran # (Auto) 0.06 H (0.00-0.02) K/uL Sodium (136-145) mmol/L Potassium (3.5-5.1) mmol/L Chloride (98-107) mmol/L Carbon Dioxide (21-32) mmol/L Anion Gap (3-11) BUN (6-23) mg/dl Creatinine (0.6-1.2) mg/dl Est Cr Clr Drug Dosing ml/min Est GFR ( Amer) ml/min Est GFR (Non-Af Amer) ml/min BUN/Creatinine Ratio (10-20) Glucose (70-99(Fasting)) mg/dl Calcium (8.5-10.1) mg/dl Total Bilirubin (0.2-1.0) mg/dl AST (13-39) U/L ALT (7-52) U/L Alkaline Phosphatase (34-104) U/L Total Protein (6.0-8.3) gm/dl Albumin (3.4-5.0) gm/dl Globulin (2.5-4.0) gm/dl Albumin/Globulin Ratio (0.9-2) Lipase (11-82) U/L Urine Color Urine Appearance (Clear) Urine pH (4.5-7.5) Ur Specific [place] (1.000-1.030) Urine Protein (Negative) Urine Glucose (UA) (Negative) Urine Ketones (Negative) Urine Blood (Negative) Urine Nitrite (Negative) Urine Bilirubin (Negative) Urine Urobilinogen (Negative) Ur Leukocyte Esterase (Negative) Urine WBC (Auto) (0-5) /hpf Urine RBC (Auto) (0-4) /hpf U Hyaline Cast (Auto) (0-5) /lpf U Epithel Cells (Auto) (0-5) /lpf Urine Bacteria (Auto) (Negative) SARS-CoV-2, RNA, NAAT (NEGATIVE) Diagnostic Findings CT abd pelvis oral and IV con CLINICAL HISTORY: ABD PAIN, R LOWER QUADRANT PAIN TECHNIQUE: Helical axial images of the abdomen and pelvis were obtained and displayed. Automated dose lowering techniques and/or adjustment according to patient size were utilized for this exam. This exam was performed with intravenous contrast. COMPARISON: None available at the time of this dictation. FINDINGS: Lower chest: No acute abnormality Liver: Cysts are seen in the liver. Gallbladder and biliary tree: Gallbladder contains numerous stones, some of which are calcified. The common bile duct measures 8 mm in diameter. Pancreas: Unremarkable, no focal lesions. Spleen: Unremarkable. Adrenals: Unremarkable. Kidneys and ureters: A large right renal cyst is seen. Bladder: Limited evaluation due to underdistention. Reproductive organs: A calcified fibroid is incidentally noted. Intrauterine device is seen. Bowel: The appendix is dilated and wall thickening and fat stranding is seen, diameter measures 13 mm. There is no well organized fluid collection or perforation seen. Lymph nodes Retroperitoneal: Subcentimeter lymph nodes are noted. Mesenteric: Subcentimeter lymph nodes are noted. Pelvic: Unremarkable. Peritoneum: Normal. Vessels: Unremarkable. Abdominal wall: Unremarkable. Bones: Unremarkable. IMPRESSION: 1. Findings are compatible with acute appendicitis without evidence of perforation or abscess formation. 2. Multiple gallstones are seen and there is prominence of the main biliary duct.
[2021-07-10] MEDS ORDERED: EPINEPHrine INJ 1 MG/ML AMP ONE (20:45)
[2021-07-10] MEDS ORDERED: BUPIVACAINE 0.5 % 5 MG/1 ML MPF 30ML VIAL ONE (20:45)
--- NOTE | 2021-07-10 21:59 | Post Operative Brief Note ---
Immediate Post Op Note v1 Date of Surgery July 10, 2021 Pre & Post Diagnosis Operation Date: 07/10/21 20:30 Pre-Op Diagnosis: Acute appendicitis with localized peritonitis Post-Op Diagnosis: Acute appendicitis with localized peritonitis I identified the patient and participated in the time-out.: Yes Procedure Operation Date: 07/10/21 20:30 Actual Procedures p Laparoscopic Appendectomy(Not Applicable) - Fabio Jerome MD Surgeon Fabio Jerome MD Hand Baseball Sewer none Estimated Blood Loss 5 Findings Consistent with Post-Op Diagnosis Drains Morteza-Goodrich Drain (15fr round)
--- NOTE | 2021-07-10 22:03 | Operative Report ---
Post Operative Report Pre & Post Diagnosis Operation Date: 07/10/21 20:30 Pre-Op Diagnosis: Acute appendicitis with localized peritonitis Post-Op Diagnosis: Acute appendicitis with localized peritonitis I identified the patient and participated in the time-out.: Yes Procedure Operation Date: 07/10/21 20:30 Actual Procedures p Laparoscopic Appendectomy(Not Applicable) - Fabio Jerome MD Surgeon Fabio Jerome MD Municipal Bond Trader none Estimated Blood Loss 5 Findings Consistent with Post-Op Diagnosis Severe inflammatory reaction in the right lower quadrant; inflamed appendix, mesoappendix, cecum, right ovary and fallopian tube; Did not appear to have perforation of the appendix Specimens Appendix Drains 15 Citizen [place] round SHAKIRA Anesthesia Type General Complications No immediate complications Description of Procedure The patient was taken to the operating room, and placed supine on the operating table. A timeout was performed, perioperative antibiotics were administered, SCD boots were placed. After adequate anesthesia and analgesia was obtained, the abdomen was prepped and draped in the normal sterile fashion. A 1 cm incision was made in the supraumbilical region and carried down to the level of the fascia. A trach hook was used to grasp the fascia and elevated and a varies needle was used to enter the abdominal cavity. The abdomen was insufflated to a pressure of 15 mmHg, and a 5 mm trocar was placed in this location. A 5 mm 30 degree laparoscope was placed into the abdominal cavity, and the abdomen was surveyed. The patient was placed in Trendelenburg and slightly to the left. One 5 mm trocar was placed in the right upper quadrant, and one 12 mm trocar was placed in the left lower quadrant under direct visualization. The right colon was identified and traced down to the cecum. There was a significant inflammatory reaction in the right lower quadrant, with bowel and fallopian tube/ovary adhesed and inflamed. These adhesions were carefully taken down bluntly. The appendix was identified and elevated anteriorly and medially. A window was created at the base of the appendix with a [place] dissector. The Endo SRAVAN stapler was used to transect the appendix at its base, and subsequently the mesoappendix. The appendix was placed in an Endo Catch bag, and removed via the left lower quadrant port site. Attention was turned to hemostasis, which was excellent. The abdomen was copiously irrigated and suctioned free, and again hemostasis was found to be excellent. Due to the significant inflammation in the right lower quadrant as well as the inflammation of the cecum, decision was made to leave a SHAKIRA drain. A 15 [place] round SHAKIRA drain was placed through the right upper quadrant incision and secured with a 2-0 nylon suture. All trochars removed under direct visualization. The abdomen was desufflated. The fascia in the 12 mm port site was closed with a 0 Vicryl suture. The skin was closed with a running 4-0 Monocryl subcuticular stitch. Dermabond was applied. The patient tolerated the procedure without complication, and was transferred in stable condition to the PACU. All instrument, needle, and sponge counts were correct at the end of the case. I attest to the content of the Intraoperative Record and any orders documented therein. Any exceptions are noted below.
[2021-07-10] MEDS ORDERED: PROMETHAZINE HCL 12.5 MG in SODIUM CHLORIDE 0.9% 50 ML IV PRN (23:08)
[2021-07-10] MEDS ORDERED: KETOROLAC 30 MG/ML VIAL IV PRN (23:08)
[2021-07-10] MEDS ORDERED: diphenhydrAMINE Capsule 25 MG CAP PO PRN (23:08)
[2021-07-10] MEDS ORDERED: MoRPHine SULFATE 2 MG/ML CARP IV PRN (23:08)
[2021-07-10] MEDS ORDERED: SODIUM CHLORIDE 0.9% 1000ML 1,000 ML IV SCH (23:08)
[2021-07-10] MEDS ORDERED: oxyCODONE/ACETAMINOPHEN 5mg/325mg TAB PO PRN (23:08)
--- NOTE | 2021-07-10 23:24 | Anesthesiology Progress Note ---
Date of Service July 10, 2021 Anesthesia Post Procedure Vital Signs Vital Signs: Temp Pulse Pulse Pulse Resp BP BP 07/10/21 23:17 36.6 C 85 16 118/67 07/10/21 22:40 37.1 C 84 16 120/75 07/10/21 22:25 36.8 C 82 16 120/61 07/10/21 22:15 84 16 118/69 07/10/21 22:06 36.8 C 98 H 16 130/92 07/10/21 17:08 36.7 C 114 H 20 132/62 Pulse Ox 07/10/21 23:17 94 07/10/21 22:40 94 07/10/21 22:25 96 07/10/21 22:15 100 07/10/21 22:06 98 07/10/21 17:08 97 Transfer of Care Handoff Completed per policy Notes Mental Status: alert / awake / arousable and participated in evaluation Patient Amnestic to Procedure: Yes Nausea / Vomiting: adequately controlled Pain: adequately controlled Airway Patency, RR, SpO2: stable & adequate BP & HR: stable & adequate Hydration State: stable & adequate Anesthetic Complications: no major complications apparent and Pt Satisfied with anesthetic care
[2021-07-11] MEDS ORDERED: ENOXAPARIN INJ 40 MG/0.4 ML SYR SQ SCH (08:00)
--- NOTE | 2021-07-11 12:41 | Discharge Summary ---
Date of Service July 11, 2021 Admission HPI Per Admitting Provider 55-year-old woman presents with 1 week history of right lower quadrant pain. She states that both her and her were sick last week with what they thought was a GI bug. She had low-grade temperatures and nausea. Abruptly her pain worsened today. Her has improved. She denies chest pain or shortness of breath. She has been having normal bowel movements. CT scan demonstrates acute appendicitis. Principal Diagnosis Acute appendicitis Discharge Data Allergies Allergy/AdvReac Type Severity Reaction Status Date / Time No Known Allergies Allergy Unverified 12/24/18 16:52 Consultations 07/10/21 20:08 Consult General Surgery Stat Procedures Performed Operation Date: 07/10/21 20:30 Actual Procedures p Laparoscopic Appendectomy(Not Applicable) - Fabio Jerome MD Hospital Course (1) Acute appendicitis with localized peritonitis: She was admitted through the emergency department taken to the operating room for laparoscopic appendectomy, the details of which are dictated in a separate operative note. Postoperatively she was transferred in stable condition to the PACU and subsequently to the floor. Diet was advanced as tolerated. DVT prophylaxis was maintained with subcutaneous Lovenox and SCDs. Incentive spirometry was encouraged for pulmonary toilet. Pain control was maintained with IV morphine and p.o. Percocet. By the date of discharge, she was tolerating regular diet, not requiring IV pain medications. She was discharged to home on postoperative day 1. She will keep the drain at home. Drain teaching will be given by staff. She return to clinic on Tuesday for drain removal. Total Time Total Time Spent Total Time Spent (In Minutes): Less than 30 minutes Discharge Plan Discharge Items Patient Disposition: Home - Self-Care Reason For Visit: POSSIBLE APPENDICITIS, CT SCAN DONE Discharge Diagnosis: Acute appendicitis Activity: Per Instructions section Lifting: No more than 25 pounds Sexual Activity: Wait until after follow-up appointment Exercise/Sports: Wait until after follow-up appointment Driving/Machine Use: Resume 3 days after discharge Non-emergency contact: Surgeon Call non-emergency contact if: you have any medication questions, your symptoms worsen, your pain is not controlled, your pain is concerning for you, your te mperature is above 101.5, your wound has increased redness, your wound has increased drainage and your wound pain has increased Follow-up/Referrals: Derian Nguyen MD [Primary Care Provider] - Diet: Regular Addtl Attending Provider Instructions: Post-Surgical ~Discharge Instructions Activity Recommendations: - lifting limitation: (10 pounds for 2 weeks), - exercise/sex/sports limit: (nonstrenuous for 2 weeks), - driving or machine use limit: (none for 1 week), - Shower/bathe limit: (may shower beginning tomorrow) Diet: - Resume previous diet SPECIAL CARE INSTRUCTIONS: - May shower in 24 hours. Let water run over area and pat dry. - Leave Dermabond in place. --Empty and record drain output as instructed by nursing staff - Call the surgeon's office with any questions or concerns - - (ex. temperature higher than 101 degrees F, excessive bleeding or pain). MEDICATIONS: - Resume previous medications unless instructed otherwise by your surgeon. - Ibuprofen 600 mg every 6 hours with food - Percocet 1 every 4 hours, as needed for pain FOLLOW UP VISIT: - If not already scheduled, please call the office to schedule a follow-up appointment for Tuesday of this week. The drain will be removed at that time. Office number Pending Studies at Discharge: No Stand-Alone Forms: [facility] [employer], Smoking Cessation Medications and DC Order Prescriptions: New oxycodone-acetaminophen [Percocet] 5-325 mg tablet 1 tab PO Q6H PRN (Reason: pain) Qty: 10 RF: 0 Continued Mirena 20 mcg/24 hours (5 yrs) 52 mg Intrauterine Device 20 mcg INTRAUTERINE RF: 0 Discharge Orders: Discharge Order (Routine); Ordered 07/11/21 Ordered By: Fabio Jerome Admission Data Admit Date/Time: 07/10/21 22:08 Attending Provider: Fabio Jerome Admit Provider: Fabio Jerome Primary Care Provider: Derian Nguyen Other Providers: Fabio Jerome
--- NOTE | 2021-07-11 12:44 | Surgery Progress Note ---
Date of Service July 11, 2021 Assessment & Plan (1) Acute appendicitis with localized peritonitis: Plan: Postop day 1 status post lap appendectomy. She is doing quite well. We will discharge her to home today. She will keep the drain. We will see her back in clinic on Tuesday for drain removal. She will require drain teaching prior to discharge. Admission and Anticipated Discharge Date Admission Date: July 10, 2021 Subjective Postoperative day 1 status post lap appendectomy. She is doing very well. She denies any pain. She denies nausea or vomiting. She is tolerating her diet. Physical Exam Constitutional: WD/WN, vitals as above Neck: trachea midline, no thyromegaly Gastrointestinal (Abdomen): Inspection/Auscultation: abdomen normal to inspection, + abdominal surgical incision (Clean dry and intact, Dermabond in place) and + abdominal surgical drain present (Right upper quadrant; small serosanguineous output); abdomen not distended Percussion/Palpation: abdomen soft; abdomen nontender and no guarding Musculoskeletal: Extremities: no cyanosis and no clubbing Psychiatric: A+Ox3, euthymic affect Results & Data ([facility]) Vital Signs (Past 12 Hours) Vital Signs Temp Pulse Pulse Resp BP Pulse Ox 07/11/21 07:40 36.7 C 79 18 117/72 97 07/11/21 01:40 36.5 C 74 14 102/64 96 07/11/21 00:45 36.3 C L 74 16 101/60 96
--- NOTE | 2021-07-12 17:51 | Electrocardiogram Report ---
Test Reason : Blood Pressure : / mmHG Vent. Rate : 094 BPM Atrial Rate : 094 BPM P-R Int : 142 ms QRS Dur : 096 ms QT Int : 342 ms P-R-T Axes : 066 076 -54 degrees QTc Int : 427 ms Normal sinus rhythm Abnormal ECG When compared with ECG of 25-DEC-2018 06:38, T wave inversion now evident in Inferior leads T wave inversion now evident in Lateral leads Confirmed by Pedro Capone ([id number]) on 07/12/2021 5:50:43 PM Referred By: REFERRED SELF Confirmed By:Pedro Capone
== END 2021-07-11 13:46 | disposition home or self-care (01) ==
LOC: ED 17:03 → OR 20:41 → 3W 20:41